=== PATIENT | female | born 1965 | race Caucasian/White ===

== ENCOUNTER 2018-04-23 04:40 | Inpatient (IN) | payer OTHER ==
[~2018-04-23] VITALS: Ht 162.6 cm; Wt 89.8 kg
[~2018-04-23 04:40] MED LIST: ALPR0.5T PO; DICY10CA13 PO; ESCI10TA PO; FURO-144 PO; HYDR-548 PO; OXYC-132 PO; POTA10CA43 PO; SUMA25TA PO; TRAM50TA2 PO; ZOLP5TAB2 PO; [UNRECOGNIZED DRUG - OTHER] PO
--- NOTE | 2018-04-23 04:50 | NUR ---
PLZ SEE PRE OP ADMISSION NOTES
[2018-04-23] MEDS ORDERED: CEFAZOLIN SODIUM/DEXTROSE,ISO 50 ML IV ONE (05:37)
[2018-04-23] MEDS ORDERED: BUPIVACAINE 0.25% 75 MG/30 ML VIAL ONE (05:41)
[2018-04-23] MEDS ORDERED: BACITRACIN 50000 UNITS/VIAL ONE (05:41)
[2018-04-23] MEDS ORDERED: KETOROLAC TROMETHAMINE INJ 30 MG/ML VIAL ONE (05:41)
[2018-04-23] MEDS ORDERED: MIDAZOLAM HCL 2 MG/2ML VIAL ONE (05:50)
[2018-04-23] MEDS ORDERED: MORPHINE SULFATE/PF 10 MG/10ML (1MG/ML) AMPUL ONE (05:50)
[2018-04-23] MEDS ORDERED: BUPIVACAINE 0.75% DEXT-PF 2 ML AMPUL ONE (05:58)
[2018-04-23] MEDS ORDERED: TRANEXAMIC ACID 3,000 MG in SODIUM CHLORIDE IRRIG SOLUTION 70 ML IR ONE (07:00)
[2018-04-23 08:15] VITALS: BP 130/86
--- NOTE | 2018-04-23 08:15 | NUR ---
INGREDIENT HANDLERRUNSTITCHING MACHINE OPERATOR NOTE PT ARRIVED ON TELE UNIT VIA GURNEY ACCOMPANIED BY OR STAFF IN STABLE CONDITION. PT IS S/P RIGHT TOTAL KNEE REPLACEMENT. PT IS A/O X4, AFEBRILE. PUPILS ARE REACTIVE TO LIGHT. BILATERAL HAND LEISURE STUDIES PROFESSOR ARE EQUAL. PT ABLE TO FEEL SENSATION TO RIGHT LEG AND WIGGLE TOES. RESPIRATIONS ARE EVEN AND UNLABORED, NOT IN ANY ACUTE DISTRESS NOTED. C/O TIGHTNESS TO RIGHT LEG AND WILL CONTINUE TO MONITOR PAIN LEVEL. DRESSING INTACT W/ NO DRAINAGE NOTED AT THIS TIME. IV SITE INTACT, NO INFILTRATION NOTED. DRESSING KEPT CLEAN AND DRY. NO C/O SOB, CHEST PAIN, NV/. ABDOMEN IS SOFT AND NONDISTENDED. BOWEL SOUNDS ARE PRESENT UPON AUSCULTATION. [place] CATH INTACT, CLEAR/YELLOW COLORED URINE. TUBING FREE OF KINKS AND DRAINING WELL. DENIES ANY BLADDER DISCOMFORT. ORDERS NOTED AND CARRIED. WILL CONTINUE TO MONITOR PT THROUGHOUT SHIFT FOR CONTINUITY OF CARE.
[2018-04-23] MEDS ORDERED: NALOXONE HCL 0.4 MG/ML AMPUL IV PRN (09:30)
[2018-04-23] MEDS ORDERED: HYDROMORPHONE 1 MG/1 ML DISP.SYRIN IV PRN (09:30)
[2018-04-23] MEDS ORDERED: COLACE 250 MG CAPSULE PO PRN (09:30)
[2018-04-23] MEDS ORDERED: DULCOLAX 10 MG/SUPP.RECT RC PRN (09:30)
[2018-04-23] MEDS ORDERED: HYDROCODONE/APAP 5/325MG 1 EACH TABLET PO PRN ×2 (09:30)
[2018-04-23] MEDS ORDERED: diphenhydrAMINE HCL 25 MG CAPSULE PO PRN (09:30)
[2018-04-23] MEDS ORDERED: SENOKOT 8.6 MG TABLET PO PRN (09:30)
[2018-04-23] MEDS ORDERED: ZOFRAN 4mg/2ML IV PRN (09:30)
[2018-04-23] MEDS ORDERED: TYLENOL 650 MG TABLET PO PRN (09:30)
[2018-04-23] MEDS: IV LR 1000 ML 1,000 ML IV PRN ×2 (10:07→20:22)
[2018-04-23] MEDS ORDERED: CYCL10TA9 PO (11:15)
[2018-04-23] MEDS ORDERED: BACL10TA PO (11:15)
[2018-04-23] MEDS ORDERED: OXYC15TA2 PO (11:15)
[2018-04-23] MEDS ORDERED: SUMA100T16 PO (11:15)
[2018-04-23] MEDS ORDERED: GABA-532 PO (11:15)
--- NOTE | 2018-04-23 13:12 | NUR ---
WHEEL ADJUSTER NOTE PT CONTINUES TO BE A/O X4, BILATERAL HAND RPG DEVELOPER ARE STRONG AND EQUAL, PUPILS ARE REACTIVE TO LIGHT. PT C/O 5/10 TO RIGHT KNEE. PT ABLE TO TOLERATE PAIN AND PAIN MEDICATION NOTED TO BE EFFECTIVE. WILL CONTINUE TO MONITOR.
[2018-04-23] MEDS: HYDROMORPHONE INJ 2 MG/ML DISP.SYRIN IV PRN ×4 (13:29→23:38)
[2018-04-23] MEDS: ANCEF 1 G in IV D5W 50 ML IV SCH ×2 (14:37→22:05)
[2018-04-23] MEDS ORDERED: Z GUARD REMEDY 2 OZ OINT TP PRN (15:00)
[2018-04-23] MEDS ORDERED: ACETAMINOPHEN 325 MG TABLET PO PRN (15:00)
[2018-04-23] MEDS ORDERED: MAGNESIUM HYDROXIDE 30 ML UDC PO PRN ×2 (15:00→16:00)
[2018-04-23] MEDS ORDERED: MAG HYDROX/AL HYDROX/SIMETH 30 ML UDC PO PRN (15:00)
[2018-04-23] MEDS ORDERED: MORPHINE SULFATE INJ 4 MG/ML DISP.SYRIN IV ONE (15:46)
[2018-04-23 16:00] VITALS: BP 132/81
[2018-04-23] MEDS ORDERED: ONDANSETRON HCL/PF 4 MG/2 ML VIAL IV PRN (16:00)
[2018-04-23] MEDS ORDERED: ALPRAZOLAM 0.25 MG TABLET PO PRN (16:00)
[2018-04-23] MEDS ORDERED: GABAPENTIN 300 MG CAPSULE PO SCH (16:00)
[2018-04-23] MEDS ORDERED: oxyCODONE IR immediate release 5 MG PO ONE (16:13)
[2018-04-23] MEDS ORDERED: CYCLOBENZAPRINE 10 MG TABLET PO PRN (16:30)
[2018-04-23] MEDS ORDERED: SUMATRIPTAN SUCCINATE 100 MG TABLET PO PRN (16:30)
[2018-04-23] MEDS: BACLOFEN (10 MG) 10 MG TABLET PO SCH ×2 (16:35→22:05)
[2018-04-23] MEDS: diphenhydrAMINE HCL 25 MG CAPSULE PO PRN (16:35)
[2018-04-23] MEDS: DOCUSATE SODIUM 100 MG CAPSULE PO SCH (16:35)
--- NOTE | 2018-04-23 17:00 | NUR ---
STRAW HAT MACHINE OPERATOR NOTE PT CONTINUES TO BE A/O X4, BILATERAL HAND INDEPENDENT AGENT MUSIC EDUCATION ARE STRONG AND EQUAL, PUPILS ARE REACTIVE TO LIGHT. PT C/O 7/10 TO RIGHT KNEE. SEEN AND EXAMINED BY DR. GARCIA FOR PAIN MANAGEMENT. ADMINISTERED PAIN MEDICATION AND NOTED TO BE EFFECTIVE. WILL CONTINUE TO MONITOR.
--- NOTE | 2018-04-23 17:20 | NUR ---
RT NOTE INSTRUCTED PATIENT ON USE OF INCENTIVE SPIROMETRY. PATIENT ABLE TO ACHIEVE TO 3500. ENCOURAGED PATIENT TO USE EVERY HOUR.
--- NOTE | 2018-04-23 18:25 | NUR ---
WIC SITE COORDINATOR CLOSING NOTES ALL DUE MEDS GIVEN, NEEDS MET AND RENDERED. PT IS NOT IN ANY APPARENT DISTRESS. REMAINS AFEBRILE. AWAKE AND RESPONSIVE. RESPIRATIONS ARE EVEN AND UNLABORED, NOT IN ANY ACUTE DISTRESS NOTED. PT ABLE TO COMMUNICATE PAIN LEVEL, PAIN MEDICATIONS NOTED TO BE EFFECTED. NO SOB, N/V. IV SITE INTACT, NO INFILTRATION NOTED. DRESSING KEPT CLEAN AND DRY. SAFETY MEASURES ARE IN PLACE. CALL LIGHT IS LEFT WITHIN REACH. WILL ENDORSE TO NEXT SHIFT FOR CONTINUITY OF CARE.
--- NOTE | 2018-04-23 19:30 | NUR ---
RN NOTES RECEIVED PT. AWAKE ON BED, S/P RIGHT KNEE ARTHROPLASTY, DRESSING DRY AND INTACT, F/C DRAINING CLEAR YELLOW URINE, A/OX4, LR RUNNING @ 100ML/HR, CALL LIGHT WITHIN REACH, [id number] CONTINUE TO MONITOR
[2018-04-23 20:10] VITALS: BP 138/74
--- NOTE | 2018-04-23 20:35 | NUR ---
RN NOTES COMPLAINED OF RIGHT KNEE PAIN AND ASKED FOR DILAUDID - DILAUDID 1MG IV GIVEN ORDERED, V/S STABLE
[2018-04-23] MEDS ORDERED: GABAPENTIN 100 MG CAPSULE PO SCH (22:00)
[2018-04-23] MEDS ORDERED: AMBIEN 5 MG TABLET PO PRN (22:00)
[2018-04-23] MEDS: oxyCODONE IR immediate release 5 MG PO PRN (22:27)
--- NOTE | 2018-04-23 22:29 | NUR ---
RN NOTES COMPLAINED OF RIGHT KNEE PAIN AND ASKING FOR OXY , OXY 20MG PO GIVEN ORDERED, V/S STABLE
--- NOTE | 2018-04-23 23:43 | NUR ---
RN NOTES COMPLAINED OF RIGHT KNEE PAIN AND ASKING FOR DILAUDID- DILAUDID 1MG IV GIVEN ORDERED, V/S STABLE
[2018-04-24] VITALS (7 sets, daily range): BP systolic 113–150; BP diastolic 61–92
[2018-04-24] MEDS: diphenhydrAMINE HCL 25 MG CAPSULE PO PRN ×3 (00:31→22:35)
[2018-04-24] MEDS: oxyCODONE IR immediate release 5 MG PO PRN ×5 (02:19→20:32)
[2018-04-24] MEDS: HYDROMORPHONE INJ 2 MG/ML DISP.SYRIN IV PRN ×4 (03:40→17:48)
--- NOTE | 2018-04-24 03:40 | NUR ---
RN NOTES COMPLAINED OF RIGHT KNEE PAIN AND ASKING FOR DILAUDID- DILAUDID 1MGIV GIVEN ORDERED, V/S STABLE
[2018-04-24] MEDS ORDERED: GABAPENTIN 100 MG CAPSULE PO SCH ×3 (04:00→10:00)
[2018-04-24] MEDS: BACLOFEN (10 MG) 10 MG TABLET PO SCH ×4 (04:34→21:20)
--- NOTE | 2018-04-24 04:37 | NUR ---
RN NOTES COMPLAINED OF MIGRAINE-IMITREX 100MG PO GIVEN ORDERED, V/S STABLE
[2018-04-24 06:11] LABS: BASOPHILS % (AUTO) 0.1 % (0.0-2.0); HEMATOCRIT 27 % (33-45); HEMOGLOBIN 8.7 g/dL (11.5-14.8); LYMPHOCYTES # (AUTO) 0.9 /CMM (0.8-4.8); LYMPHOCYTES % (AUTO) 8.5 % (20.0-44.0); MEAN CORPUSCULAR HGB CONC 33 g/dl (31.0-36.0); MEAN CORPUSCULAR VOLUME 82 fL (82-100); MONOCYTES # (AUTO) 0.5 /CMM (0.1-1.30); NEUTROPHILS # (AUTO) 9.5 /CMM (1.8-8.9); NEUTROPHILS % (AUTO) 86.4 % (43.0-81.0); PLATELET COUNT (AUTO) 229 /CMM (150-450); RDW COEFFICIENT OF VARIATION 14.6 (11.5-15.0); RED BLOOD CELL COUNT(AUTO) 3.26 MIL/uL (4.0-5.2)
--- NOTE | 2018-04-24 06:30 | NUR ---
RN NOTES COMPLAINED OF RIGHT KNEE PAIN- OXY IR 20MG PO GIVEN ORDERED, V/S STABLE, MORNING CARE RENDERED, CALL LIGHT WITHIN REACH, [id number], PT. NEEDS ATTENDED
[2018-04-24 06:45] LABS: CALCIUM, SERUM 8.7 mg/dL (8.5-10.1); CREATININE 0.5 mg/dL (0.6-1.3); MAGNESIUM 2.1 mg/dL (1.8-2.4); PHOSPHORUS 3.2 mg/dL (2.5-4.9)
--- NOTE | 2018-04-24 07:20 | NUR ---
Tele/RN - AM Assessment Patient awake, A/O x 4, reports moderate pain to op site, was given Oxy IR 20 mg at 06:30. Skin is intact except for QAMAR bruise and right knee surgical incision S/P Right TKA with Dr. Carson POD#1. Right knee dressing c/d/i without drainage, discharge, surrounding erythema, or excess warmth. Skin on BLE is warm to touch, negative calf tenderness, negative for edema, sensation on both lower ext are intact. Tele reads SR. Lamb catheter in place, draining adequate amount of clear yellow urine, to be removed tomorrow POD#2. IVF LR at 100 ml/hr infusing well on the LAC with no signs of infiltration. Fall precautions maintained. All needs anticipated and met. Will continue with current plan of care.
[2018-04-24] MEDS: PANTOPRAZOLE 40 MG TABLET.DR PO SCH (07:25)
[2018-04-24] MEDS: ASPIRIN 325 MG TABLET PO SCH (08:19)
[2018-04-24] MEDS: DOCUSATE SODIUM 100 MG CAPSULE PO SCH ×2 (08:19→16:34)
[2018-04-24] MEDS: GABAPENTIN 100 MG CAPSULE PO SCH ×3 (10:01→21:20)
--- NOTE | 2018-04-24 11:00 | NUR ---
Tele/RN - Notes Patient resting comfortably, tele shows SR, no s/s of distress, CPM on the right knee at 80 degrees flexion on the tolerated well. Will continue to monitor closely.
[2018-04-24] MEDS: POTASSIUM CHLORIDE 20 MEQ TAB.PRT.SR PO SCH ×3 (12:35→14:53)
--- NOTE | 2018-04-24 18:04 | NUR ---
M/S RN - End Notes No new events seen. Patient resting comfortably, remain afebrile, saline lock on the RFA with no signs of infiltration, tolerated CPM with 80 degrees flexion for 6 hours. Potassium level today was 3.0, repleted. Per ortho, ok to remove paz catheter tonight and cleared for discharge home tomorrow. Per Wilbur (PA), he'll try to be here tomorrow around 11:00 to do dressing change and if he can't make it ok for RN to change it. Right knee pain well controlled by Oxy IR 20 mg po alternating with it Dilaudid 1 mg IVP PRN. Will endorse to the night nurse accordingly.
--- NOTE | 2018-04-24 19:30 | NUR ---
RN NOTES RECEIVED PT. AWAKE ON BED, A/OX4, DRESSING ON THE RIGHT KNEE DRY AND INTACT, F/C DRAINING CLEAR YELLOW URIEN, CALL LIGHT WITHIN REACH, [id number], CONTINUE TO MONITOR
--- NOTE | 2018-04-24 20:35 | NUR ---
RN NOTES PT COMPLAINED OF RIGHT KNEE PAIN- OXY IR 20MG PO GIVEN ORDERED BUT PT. ACCIDENTALLY DROPPED IT ON THE FLOOR, SO I TOOK ANOTHER 20MG PO OF OXY IR... V/S STABLE
--- NOTE | 2018-04-24 22:00 | NUR ---
RECEIVED PT IN BED, ENDORSED BY AGUSTIN MOTLEY. PT ASLEEP AT THIS TIME, APPEARS COMFORTABLE, AROUSES EASILY. PT WIT NO DISTRESS, NO SOB AT THIS TIME. WITH CLEAN AND INTACT DRESSING ON RIGHT KNEE , NO BLEEDING NOTED. NO C/O PAIN OR DISCOMFORT AT THIS TIME. FC IS INTACT AND PATENT, DRAINING WELL WITH YELLOW URINE, NO HEMATURIA NOTED. ALL NEEDS ATTENDED AND MET. CALL LIGHT WITHIN REACH. WILL CONT TO MONITOR.
--- NOTE | 2018-04-24 22:00 | NUR ---
RN NOTES GAVE REPORT TO ANOTHER NURSE JANET, PT IS SLEEPING BUT AROUSABLE, DRESSING ON THE RIGHT KNEE DRY AND INTACT, ON STABLE CONDITION
--- NOTE | 2018-04-25 00:45 | NUR ---
PT ASLEEP AT THIS TIME, AROUSES EASILY. NO DISTRESS, NO SOB NOTED. RESPIRATION IS EVEN AND UNLABORED. ALL NEEDS ATTENDED AND MET. CALL LIGHT WITHIN REACH. WILL CONT TO MONITOR.
[2018-04-25] MEDS: HYDROMORPHONE INJ 2 MG/ML DISP.SYRIN IV PRN ×4 (01:33→16:34)
[2018-04-25] MEDS: GABAPENTIN 100 MG CAPSULE PO SCH ×3 (04:38→16:32)
[2018-04-25] MEDS: BACLOFEN (10 MG) 10 MG TABLET PO SCH ×3 (04:38→16:32)
[2018-04-25] MEDS: oxyCODONE IR immediate release 5 MG PO PRN ×2 (05:07→19:54)
--- NOTE | 2018-04-25 06:00 | NUR ---
paz catheter removed without resistance nor difficulty. will endorse to next shift accordingly.
--- NOTE | 2018-04-25 06:54 | NUR ---
MS NOTES PT AWAKE, A/O X 4, VERBALLY RESPONSIVE. PT WITH NO DISTRESS, NO SOB AT THIS TIME. WITH CLEAN AND INTACT DRESSING ON RIGHT KNEE , NO BLEEDING NOTED. NO C/O PAIN OR DISCOMFORT AT THIS TIME. ALL NEEDS ATTENDED AND MET. CALL LIGHT WITHIN REACH. WILL ENDORSE TO NEXT SHIFT FOR RYAN.
[2018-04-25 07:01] LABS: CALCIUM, SERUM 8.4 mg/dL (8.5-10.1); CREATININE 0.5 mg/dL (0.6-1.3)
[2018-04-25 07:37] LABS: POTASSIUM 2.8 mmol/L (3.5-5.1)
[2018-04-25 08:00] VITALS: BP 156/100
--- NOTE | 2018-04-25 08:00 | NUR ---
MS RN AM NOTES PT AWAKE, A/O X 4, VERBALLY RESPONSIVE. PT WITH NO DISTRESS, NOR SOB AT THIS TIME. WITH CLEAN AND INTACT DRESSING ON RIGHT KNEE SURGICAL SITE.USES FWW TO BRP AND WORKS WITH P.T. TOLERATING WELL , NO BLEEDING NOTED ON RT KNEE SURGICAL SITE. PAIN MGT DONE FOR RT KNEE S/P RT TKA.AMBULATES WITH ASSIST WITH FWW.NEEDS ATTENDED AND MET. CALL LIGHT WITHIN REACH.
[2018-04-25] MEDS: DOCUSATE SODIUM 100 MG CAPSULE PO SCH ×2 (08:36→16:30)
[2018-04-25] MEDS: PANTOPRAZOLE 40 MG TABLET.DR PO SCH (08:36)
[2018-04-25] MEDS: ASPIRIN 325 MG TABLET PO SCH (08:36)
[2018-04-25] MEDS: POTASSIUM CHLORIDE 20 MEQ TAB.PRT.SR PO SCH ×3 (11:09→14:14)
--- NOTE | 2018-04-25 11:20 | NUR ---
JACK GUTIERREZ CALLED SAYING THAT THE PT IS CLEARED FOR DISCHARGE AND DRESSING CHANGE TO BE DONE PRIOR TO DISCHARGE.FOLLOW UP MADE WITH NAI TAYLOR NP
--- NOTE | 2018-04-25 12:34 | NUR ---
DILAUDID1 MG (0.5 ML) WAS GIVEN AT 1230 FOR PAIN -FORGOT TO SCAN AND THE REST WAS DISPENSED IN THE SHARPER WITNESSED BY PRECEPTOR
[2018-04-25 16:00] VITALS: BP 155/88
--- NOTE | 2018-04-25 19:55 | NUR ---
MS RN NOTE: PATIENT RESTING IN BED, NO ACUTE DISTRESS NOTED. BREATHING EVEN AND UNLABORED, NO SOB NOTED. PATIENT COMPLAINS OF PAIN TO RIGHT KNEE 8/, OXY IR 20MG ORAL GIVEN PER MD ORDER. PATIENT TO BE DISCHARGE TONIGHT, WAITING FOR FAMILY TO SIGNS CLEANER. DISCHARGE PAPERWORK COMPLETED DURING DAY SHIFT. BED LOCKED AND IN LOWEST POSITION, CALL LIGHT IN REACH. WILL CONTINUE TO MONITOR.
--- NOTE | 2018-04-25 20:45 | NUR ---
MS RN NOTE: PATIENT READY FOR DISCHARGE, SON TO TAKE HOME PATIENT. IV ALREADY REMOVED ALREADY DURING DAY SHIFT AND DISCHARGE PAPERWORK ALREADY WITH PATIENT. ID BAND REMOVED. ALL BELONGINGS WITH PATIENT. BRACE TO RIGHT KNEE APPLIED. PATIENT ESCORTED DOWNSTAIRS IN WHEELCHAIR WITH HAND SLITTER, WITH NO ACUTE DISTRESS.
== END 2018-04-25 20:40 | disposition home health service (06) | DRG 470 ==
LOC: DS 04:40 → MED 08:17 → TELE 16:02 → MED 04-24 16:48
PROVIDERS: ADMIT Specialist; ATTEND Specialist
PROC: 0SRC0J9 Replacement of Right Knee Joint with Synthetic Substitute, Cemented, Open Approach (ICD-10-PCS; principal; 2018-04-23 06:55)
DX: M17.11 Unilateral primary osteoarthritis, right knee (principal); F11.20 Opioid dependence, uncomplicated; D64.9 Anemia, unspecified; E66.9 Obesity, unspecified; G43.909 Migraine, unspecified, not intractable, without status migrainosus; I10 Essential (primary) hypertension; Z68.34 Body mass index [BMI] 34.0-34.9, adult; G89.4 Chronic pain syndrome; F41.9 Anxiety disorder, unspecified; G47.00 Insomnia, unspecified; E87.6 Hypokalemia; F41.0 Panic disorder [episodic paroxysmal anxiety]; Z98.84 Bariatric surgery status
CPT/HCPCS: 36415; 80048-TC; 80061-TC; 83735-TC; 84100-TC; 85025-TC; 86850-TC; 86921-TC; 87081-TC; 88305-TC; 88311-TC; 97110-TC; 97116-TC; 97760-TC; A4217; A6402; A6403; A6407; C1713; J0690; J1100; J1170; J1885; J2250; J2270; J2274; J2405; J2704; J3490; J7060; J7120; L1830; Q0163; Z7610